=== PATIENT | male | born 1985 | race Caucasian/White ===

== ENCOUNTER 2018-09-23 12:48 | Observation (INO) | payer OTHER ==
[~2018-09-23] VITALS: Ht 188 cm; Wt 84.5 kg
--- NOTE | 2018-09-23 13:18 | NUR ---
PT OUT OF THE ED AT THIS TIME, TAKEN TO MEDICAL IMAGING VIA STRETCHER.
[2018-09-23 13:59] LABS: BASOPHILS 0.1 % (0-2); EOSINOPHILS 0.3 % (0-7); HEMATOCRIT 43.2 % (42.0-54.0); HEMOGLOBIN 15.3 g/dL (13.5-17.5); IMMATURE GRANULOCYTES 0.3 % (0-5); LYMPHOCYTES 11.5 % (15-50); MCH 34.2 pg (26.0-34.0); MCHC 35.4 g/dL (31.0-37.0); MCV 96.6 fL (80.0-100.0); MEAN PLATELET VOLUME 9.9 fL (7.4-10.4); MONOCYTES 10.4 % (2-11); NEUTROPHILS 77.4 % (40-80); PLATELET COUNT 285 10x3/uL (130-400); RBC 4.47 10x6/uL (4.20-6.10); RDW 12.5 % (11.5-14.5); WBC 15.1 10x3/uL (4.8-10.8)
[2018-09-23 14:03] LABS: ALBUMIN 3.5 g/dL (3.4-5.0); ALKALINE PHOSPHATASE 108 U/L (46-116); ALT (SGPT) 37 U/L (10-68); BILIRUBIN - TOTAL 0.96 mg/dL (0.2-1.3); CALC OSMOLALITY 278 mosm/kg (275-300); CARBON DIOXIDE 26.9 mmol/L (21.0-32.0); CHLORIDE - SERUM 103 mmol/L (98-107); GLUCOSE 129 mg/dL (74-106); POTASSIUM - SERUM 3.7 mmol/L (3.5-5.1); PROTEIN - SERUM 7.4 g/dL (6.4-8.2); SODIUM 139 mmol/L (136-145); UREA NITROGEN 10 mg/dL (7-18); eGFR NON AFRICAN AMERICAN > 90 mL/min (90-120)
--- NOTE | 2018-09-23 15:58 | NUR ---
ROOM 2224 ASSIGNED AT 1456 AND MARKED DIRTY. BEGAN ATTMPTING TO CALL REPORT AT THIS TIME.
[2018-09-23 16:32] VITALS: BP 140/90; BMI 23.9
[2018-09-23 17:39] VITALS: Ht 188 cm; Wt 84.5 kg
--- NOTE | 2018-09-23 19:01 | NUR ---
PT OUT OF ROOM FOR "FRESH AIR". PT DENIES DIZZSINESS/LIGHTHEADEDNESS UPON STANDING. PT DENIES PRESENCE OF PAIN AND/OR N/V AT THIS TIME. PT TO NOTIFY NURSE WHEN RETURNS TO ROOM.
[2018-09-23 20:00] VITALS: BP 135/69
--- NOTE | 2018-09-23 20:00 | NUR ---
ALERT SITTING UP IN BED VISITING WITH FAMILY, SLIGHT EDEMA NOTED TO RIGHT SIDE OF FACE, SEE SHIFT ASSESSMENT, CALL LIGHT IN REACH
[2018-09-24] VITALS: BP 118/65
[2018-09-24 04:00] VITALS: BP 133/79
[2018-09-24 04:00] LABS: BASOPHILS 0.2 % (0-2); EOSINOPHILS 1.5 % (0-7); HEMATOCRIT 43.7 % (42.0-54.0); HEMOGLOBIN 14.9 g/dL (13.5-17.5); IMMATURE GRANULOCYTES 0.3 % (0-5); MCH 33.6 pg (26.0-34.0); MCHC 34.1 g/dL (31.0-37.0); MCV 98.4 fL (80.0-100.0); MONOCYTES 12.4 % (2-11); NEUTROPHILS 68.6 % (40-80); PLATELET COUNT 282 10x3/uL (130-400); RBC 4.44 10x6/uL (4.20-6.10); RDW 12.7 % (11.5-14.5); WBC 11.5 10x3/uL (4.8-10.8)
[2018-09-24 04:20] LABS: ALBUMIN 3.1 g/dL (3.4-5.0); ALKALINE PHOSPHATASE 101 U/L (46-116); ALT (SGPT) 32 U/L (10-68); BILIRUBIN - TOTAL 0.67 mg/dL (0.2-1.3); CALC OSMOLALITY 279 mosm/kg (275-300); CALCIUM 8.6 mg/dL (8.5-10.1); CARBON DIOXIDE 28.7 mmol/L (21.0-32.0); CHLORIDE - SERUM 105 mmol/L (98-107); GLUCOSE 100 mg/dL (74-106); POTASSIUM - SERUM 3.8 mmol/L (3.5-5.1); SODIUM 141 mmol/L (136-145); UREA NITROGEN 10 mg/dL (7-18); eGFR NON AFRICAN AMERICAN > 90 mL/min (90-120)
--- NOTE | 2018-09-24 08:00 | NUR ---
ALERT AN ORIENTED WITH EDEMA AND SLIGHT ERRYTHEMA NOTED TO RT MANDIBULAR AREA. DENIES ANY TROUBLE CHEWING OR SWALLOWING RO ORAL PAIN. STATES SWELLING IS COUNG DOWN DUE TO CAN SEE IN RIGHT EYE. ENCOURAGED TO USE CALL LIGHT FOR ASSSIT.
[2018-09-24 09:49] VITALS: BP 144/86
[2018-09-24] MEDS ORDERED: CLEOCIN HCL300 MG PO (12:28)
--- NOTE | 2018-09-24 13:57 | NUR ---
PT DISCHARGED UNER CARE OF FAMILY AND VERBALIZED UNDERSTANDING OF DISCHARGE INSTRUCTIONS. IV DISCONTINUED AND STABLE AT TIME OF DEPARTURE. REINSTRUCTED ON MEDICAION ADMINISTRATION AND BENEFITS OF PROBIOTICS.
--- NOTE | 2018-09-27 16:18 | MORECARE ---
CASE MANAGEMENT DISCHARGE SUMMARY PATIENT: JUSTIN MONTGOMERY UNIT: [id number] ADM DATE: 09/23/18 AGE: 33 : 85 SEX: M ROOM/BED: D.2224 AUTHOR: SILVESTRE CAMPOS PHYSICIAN: REFERRING PHYSICIAN: SHARON SALMERON MD DATE OF SERVICE: 09/27/18 Discharge Plan Patient Name: JUSTIN MONTGOMERY [facility] [facility] 1985 Planned Disposition: Anticipated Discharge Date: Discharge Date: 09/24/2018 Expected LOS: 0 Initial Reviewer: [email or web address] Initial Review Date: 09/27/2018 Generated: 09/27/18 5:18 pm Patient Name: JUSTIN MONTGOMERY Page [id number] at 1618 All edits/amendments must be made on the electronic document DICTATION DATE: 09/27/181616 BLACKSM[employer] SUPERVISOR: ARMANDO 09/27/181616 RPT#: [id number] DC DATE:09/24/18 STATUS: DIS IN [facility] [address] [place] [id number] END OF REPORT
== END 2018-09-24 13:55 | disposition home or self-care (01) ==
LOC: D.ER 12:48 → D.MS 15:17 → OBSVTIME 15:18 → D.MS 09-24 13:55
PROVIDERS: Family Medicine; ADMIT Family Medicine; ATTEND Family Medicine
DX: L03.211 Cellulitis of face (principal); K02.9 Dental caries, unspecified; Z72.0 Tobacco use